=== PATIENT | male | born 1940 | race Hispanic/Latino ===

== ENCOUNTER 2019-04-10 22:02 | Emergency (ER) | payer MEDICARE, OTHER ==
--- NOTE | 2019-04-10 23:45 | XRay Report ---
CHEST 1 VIEW INDICATION: Chest Pain. COMPARISON: None FINDINGS: Support devices: None. Heart: Within normal limits. Lungs/Pleura: No acute air space or interstitial disease. Additional findings: None. IMPRESSION: 1. No acute findings. Signer Name: Av Grover MD Signed: 04/10/2019 11:41 PM Workstation Name: [id number]
[2019-04-11 00:06] LABS: Basophils # (Auto) 0.1 K/mm3 (0.0-0.1); Basophils % (Auto) 0.6 % (0.0-1.8); Eosinophils % (Auto) 0.1 % (0.0-4.3); Hematocrit 42.2 % (35.5-45.6); Lymphocytes # (Auto) 0.7 K/mm3 (1.2-5.4); Lymphocytes % (Auto) 6.2 % (13.4-35.0); Mean Corpuscular HGB Conc 33 % (32-34); Mean Corpuscular Volume 95 fl (84-94); Monocytes # (Auto) 0.7 K/mm3 (0.0-0.8); Monocytes % (Auto) 5.8 % (0.0-7.3); Platelet Count 180 K/mm3 (140-440); Red Blood Count 4.45 M/mm3 (3.65-5.03); Red Cell Distribution Width 13.8 % (13.2-15.2)
[2019-04-11 00:36] LABS: Alanine Aminotransferase 15 units/L (7-56); Albumin 4.7 g/dL (3.9-5); BUN/Creatinine Ratio 14; Blood Urea Nitrogen 14 mg/dL (9-20); Calcium 9.9 mg/dL (8.4-10.2); Hemolysis Index 8
[2019-04-11 00:38] LABS: Bilirubin,Urine NEG (Negative); Blood,Urine NEG (Negative); Color,Urine Yellow (Yellow); Mucus,Urine FEW /HPF; Urobilinogen,Urine < 2.0 mg/dL (<2.0)
[2019-04-11 08:08] VITALS: BP 146/84
[2019-04-11] MEDS ORDERED: SODIUM CHLORIDE 0.9% 1000 ML 1,000 ML IV ONE (08:28)
[2019-04-11] MEDS ORDERED: SIMETHICONE 80 MG CHEW TAB PO NR (08:29)
--- NOTE | 2019-04-11 08:29 | Emergency Department Report ---
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 HR 85 AND BP 155/91 IN TRIAGE. NO VOMITING. POS NAUSEA. NO FEVER OR CHILLS. GASSY WITH BM AT 0700 WHICH STATES HE FELT BETTER AFTER HAVING PT AMBULATORY IN ACC. AND NAD. NON TOXIC ON EXAM. PMH HLD HTN COLONOSCOPY 6 Y AGO NORMAL HAS HAD GASTRIC ULCERS IN THE PAST HYPOTHYROID HOME MEDS SHINGRIX FLOMAX SYNTHROID METOPROLOL TERAZOSIN STATIN Complaint: abdominal pain -: Sudden, days(s) (2) Location: diffuse Radiation: none Migration to: no migration Severity scale (0 -10): 2 Quality: cramping, aching Consistency: intermittent Improves With: bowel movement Worsens With: nothing Associated Symptoms: denies other symptoms - Related Data Previous Rx's Medication Instructions Recorded Last Taken Type Ondansetron [Zofran Odt] 4 mg PO Q8HR PRN #10 tab.rapdis 04/11/19 Unknown Rx Allergies Allergy/AdvReac Type Severity Reaction Status Date / Time Sulfa (Sulfonamide Allergy Rash Verified 04/10/19 22:07 Antibiotics) ED Review of Systems ROS: Stated complaint: ABD PAIN Other details as noted in HPI Comment: All other systems reviewed and negative ED Past Medical Hx - Past Medical History Previous Medical History?: Yes Hx Hypertension: Yes Hx CVA: No Hx Heart Attack/AMI: No Hx Congestive Heart Failure: No Hx Diabetes: No Hx Deep Vein Thrombosis: No Hx Pulmonary Embolism: No Hx GERD: Yes Hx Liver Disease: No Hx Renal Disease: No Hx of Cancer: No Hx Sickle Cell Disease: No Hx Arthritis: No Hx Headaches / Migraines: No Hx Seizures: No Hx Kidney Stones: No Hx Psychiatric Treatment: No Hx Asthma: No Hx COPD: No Hx Tuberculosis: No Hx Dementia: No Hx HIV: No - Surgical History Past Surgical History?: Yes Additional Surgical History: GI ulcer - Family History Family history: no significant - Social History Smoking Status: Never Smoker Substance Use Type: Alcohol - Medications Home Medications: Home Medications Medication Instructions Recorded Confirmed Last Taken Type Ondansetron [Zofran Odt] 4 mg PO Q8HR PRN #10 tab.rapdis 04/11/19 Unknown Rx ED Physical Exam - General Limitations: No Limitations General appearance: alert, in no apparent distress - Head Head exam: Present: atraumatic, normocephalic - Eye Eye exam: Present: normal appearance - ENT ENT exam: Present: mucous membranes moist - Neck Neck exam: Present: normal inspection - Respiratory Respiratory exam: Present: normal lung sounds bilaterally. Absent: respiratory distress - Cardiovascular Cardiovascular Exam: Present: regular rate, normal rhythm. Absent: systolic murmur, diastolic murmur, rubs, gallop - GI/Abdominal GI/Abdominal exam: Present: soft, normal bowel sounds - Rectal Rectal exam: Present: deferred - Extremities Exam Extremities exam: Present: normal inspection - Back Exam Back exam: Present: normal inspection - Neurological Exam Neurological exam: Present: alert, oriented X3 - Psychiatric Psychiatric exam: Present: normal affect, normal mood - Skin Skin exam: Present: warm, dry, intact, normal color. Absent: rash ED Course Vital Signs 04/10/19 04/11/19 04/11/19 23:08 05:03 08:07 Temperature 97.8 F 97.4 F L 97.7 F Pulse Rate 85 78 79 Respiratory 18 18 18 Rate Blood Pressure 155/91 163/88 Blood Pressure 146/84 [Right] O2 Sat by Pulse 97 99 97 Oximetry ED Medical Decision Making - Lab Data Result diagrams: 04/10/19 23:45 04/10/19 23:45 - Radiology Data Radiology results: report reviewed, image reviewed - Medical Decision Making Lab Results 04/10/19 04/10/19 04/10/19 Range/Units 23:00 23:45 23:45 WBC 12.0 H (4.5-11.0) K/mm3 RBC 4.45 (3.65-5.03) M/mm3 Hgb 14.0 (11.8-15.2) gm/dl Hct 42.2 (35.5-45.6) % MCV 95 H (84-94) fl MCH 31 (28-32) pg MCHC 33 (32-34) % RDW 13.8 (13.2-15.2) % Plt Count 180 (140-440) K/mm3 Lymph % (Auto) 6.2 L (13.4-35.0) % [place] % (Auto) 5.8 (0.0-7.3) % Eos % (Auto) 0.1 (0.0-4.3) % Baso % (Auto) 0.6 (0.0-1.8) % Lymph # 0.7 L (1.2-5.4) K/mm3 [place] # 0.7 (0.0-0.8) K/mm3 Eos # 0.0 (0.0-0.4) K/mm3 Baso # 0.1 (0.0-0.1) K/mm3 Seg Neutrophils % 87.3 H (40.0-70.0) % Seg Neutrophils # 10.4 H (1.8-7.7) K/mm3 Sodium 139 (137-145) mmol/L Potassium 4.5 (3.6-5.0) mmol/L Chloride 100.5 (98-107) mmol/L Carbon Dioxide 25 (22-30) mmol/L Anion Gap 18 mmol/L BUN 14 (9-20) mg/dL Creatinine 1.0 (0.8-1.5) mg/dL Estimated GFR > 60 ml/min BUN/Creatinine Ratio 14 % Glucose 155 H (75-100) mg/dL Calcium 9.9 (8.4-10.2) mg/dL Total Bilirubin 0.30 (0.1-1.2) mg/dL AST 27 (5-40) units/L ALT 15 (7-56) units/L Alkaline Phosphatase 49 (35-129) units/L Troponin T (0.00-0.029) ng/mL Total Protein 7.9 (6.3-8.2) g/dL Albumin 4.7 (3.9-5) g/dL Albumin/Globulin Ratio 1.5 % Lipase (13-60) units/L Urine Color Yellow (Yellow) Urine Turbidity Clear (Clear) Urine pH 6.0 (5.0-7.0) Ur Specific [place] 1.014 (1.003-1.030) Urine Protein 100 mg/dl (Negative) mg/dL Urine Glucose (UA) Neg (Negative) mg/dL Urine Ketones Neg (Negative) mg/dL Urine Blood Neg (Negative) Urine Nitrite Neg (Negative) Urine Bilirubin Neg (Negative) Urine Urobilinogen < 2.0 (<2.0) mg/dL Ur Leukocyte Esterase Neg (Negative) Urine WBC (Auto) 1.0 (0.0-6.0) /HPF Urine RBC (Auto) 5.0 (0.0-6.0) /HPF Urine Mucus Few /HPF 04/10/19 04/10/19 04/11/19 Range/Units 23:45 23:45 05:04 WBC (4.5-11.0) K/mm3 RBC (3.65-5.03) M/mm3 Hgb (11.8-15.2) gm/dl Hct (35.5-45.6) % MCV (84-94) fl MCH (28-32) pg MCHC (32-34) % RDW (13.2-15.2) % Plt Count (140-440) K/mm3 Lymph % (Auto) (13.4-35.0) % [place] % (Auto) (0.0-7.3) % Eos % (Auto) (0.0-4.3) % Baso % (Auto) (0.0-1.8) % Lymph # (1.2-5.4) K/mm3 [place] # (0.0-0.8) K/mm3 Eos # (0.0-0.4) K/mm3 Baso # (0.0-0.1) K/mm3 Seg Neutrophils % (40.0-70.0) % Seg Neutrophils # (1.8-7.7) K/mm3 Sodium (137-145) mmol/L Potassium (3.6-5.0) mmol/L Chloride (98-107) mmol/L Carbon Dioxide (22-30) mmol/L Anion Gap mmol/L BUN (9-20) mg/dL Creatinine (0.8-1.5) mg/dL Estimated GFR ml/min BUN/Creatinine Ratio % Glucose (75-100) mg/dL Calcium (8.4-10.2) mg/dL Total Bilirubin (0.1-1.2) mg/dL AST (5-40) units/L ALT (7-56) units/L Alkaline Phosphatase (35-129) units/L Troponin T < 0.010 < 0.010 (0.00-0.029) ng/mL Total Protein (6.3-8.2) g/dL Albumin (3.9-5) g/dL Albumin/Globulin Ratio % Lipase 43 (13-60) units/L Urine Color (Yellow) Urine Turbidity (Clear) Urine pH (5.0-7.0) Ur Specific [place] (1.003-1.030) Urine Protein (Negative) mg/dL Urine Glucose (UA) (Negative) mg/dL Urine Ketones (Negative) mg/dL Urine Blood (Negative) Urine Nitrite (Negative) Urine Bilirubin (Negative) Urine Urobilinogen (<2.0) mg/dL Ur Leukocyte Esterase (Negative) Urine WBC (Auto) (0.0-6.0) /HPF Urine RBC (Auto) (0.0-6.0) /HPF Urine Mucus /HPF LABS NOTED UA NOTED MEDICATED FOR LARGE GASTRIC BUBBLE/AIR AND CONSTIPATION. CT NOTED WILL DC HOME WITH DC POC INCLUDING PCP AND GI FOLLOW UP ON DC AMBULATORY AND NON TOXIC TAKING PO Vital Signs 04/10/19 04/11/19 04/11/19 23:08 05:03 08:07 Temperature 97.8 F 97.4 F L 97.7 F Pulse Rate 85 78 79 Respiratory 18 18 18 Rate Blood Pressure 155/91 163/88 Blood Pressure 146/84 [Right] O2 Sat by Pulse 97 99 97 Oximetry PT AND SON UPDATED ON POC PT DISCHARGE. THEY VERBALIZE UNDERSTANDING. PT NON ILL NON TOXIC APPEARING. NO N/V/D OR CHILLS/FEVER. TAKING PO. AMBULATORY - Differential Diagnosis CONSTIPATION/GASTRIC ULCER/GASTROENTERITIS/DIVERTICULITIS Critical care attestation.: If time is entered above; I have spent that time in minutes in the direct care of this critically ill patient, excluding procedure time. ED Disposition Clinical Impression: Abdominal pain, Colitis Disposition: DC-01 TO HOME OR SELFCARE Is pt being admited?: No Does the pt Need Aspirin: No Condition: Stable Instructions: Constipation (ED), Acute Abdominal Pain (ED) Additional Instructions: STAY WELL HYDRATED BLAND DIET BANANA RICE APPLESAUCE AND TOAST INTRODUCE FOODS SLOWLY CONTINUE HOME MEDS WALK DAILY FOLLOW UP WITH PCP AND GI MD REFERRAL TO GI BELOW Prescriptions: Ondansetron [Zofran Odt] 4 mg PO Q8HR PRN #10 tab.rapdis PRN Reason: Vomiting Referrals: FLIP KING JR, MD [Primary Care Provider] - 3-5 Days PEPE KNOTT MD [Staff Physician] - 3-5 Days Time of Disposition: 10:03
[2019-04-11] MEDS ORDERED: SENNOSIDES 8.6 MG TAB PO NR (10:01)
[2019-04-11] MEDS ORDERED: POLYETHYLENE GLYCOL 3350 17 GM POWDER PO NR (10:01)
[2019-04-11] MEDS ORDERED: DOCUSATE SODIUM 100 MG CAP PO ONE (10:02)
--- NOTE | 2019-04-11 10:16 | Cat Scan Report ---
CT OF THE ABDOMEN AND PELVIS WITH INTRAVENOUS CONTRAST INDICATION / CLINICAL INFORMATION: Centralized abdominal pain for one day.. TECHNIQUE: The patient received 100 cc Omnipaque [address] scans at this location are performed u sing CT dose reduction for CYRUS by means of automated exposure control. COMPARISON: None available. FINDINGS: ABDOMEN: There is mild to moderate generalized increased fluid throughout the colon with milder incre ased fluid throughout the small bowel, more prominent distally. No significant bowel wall thickening is seen. I see no evidence of bowel obstruction or free air. There are a few tiny simple hepatic cysts. There are also multiple calcified granulomata in the liver . The gallbladder, bile ducts, pancreas, spleen, adrenal glands and kidneys demonstrate no significan t abnormality. No adenopathy is seen. The lung bases are clear. PELVIS: There is moderate increased gas and fluid in the rectum without bowel wall thickening. The pr ostate gland is mildly enlarged. The distal ureters and urinary bladder are normal. The appendix is n ot seen. There is no evidence of diverticulitis. No abnormal mass or fluid collection is identified. I do not identify a hernia. There is mild spondylosis. IMPRESSION: Generalized increased fluid throughout the colon and small bowel is most commonly related to a low-grade enterocolitis. Other causes of diarrhea could also have this appearance. Signer Name: Erick Patel MD Signed: 04/11/2019 10:11 AM Workstation Name: [id number]
== END 2019-04-11 11:11 | disposition home or self-care (01) ==
LOC: ED 22:02
DX: K52.9 Noninfective gastroenteritis and colitis, unspecified (principal); I10 Essential (primary) hypertension; K21.9 Gastro-esophageal reflux disease without esophagitis; Z79.899 Other long term (current) drug therapy; Z88.2 Allergy status to sulfonamides
CPT/HCPCS: 36415; 71045; 74177; 80053; 81001; 83690; 84484; 85025; 93005; 93010; 96360; 99284; J7030; Q9967